=== PATIENT | female | born 1935 | race Caucasian/White ===

== ENCOUNTER 2016-03-15 20:25 | Emergency (ER) | payer OTHER ==
[2016-03-15 20:34] VITALS: TEMP 98.4; BMI 34.0
--- NOTE | 2016-03-15 21:02 | PDOC ---
History of Present Illness - History of Present Illness Initial Comments: 03/15/16 22:34 The patient is an 80 year old female with a past medical hx of asthma, CVA, hypertension, diabetes mellitus who presents to the ED complaining of headache and lightheadedness for a few days. She reports taking Tylenol with minimal relief. She states Tylenol usually relieves her of her normal headaches. She reports recently starting Famotidine and her ENT, Dr. Richard Nichole, reports these symptoms may be a side effect of this medication, but referred her to the ED for further evaluation. The patient denies any falls or trauma to her head. She notes she has photophobia, and has been feeling tired, weak, and off balance when walking with her cane. The patient denies chills, fever, dysuria, frequency The patient denies chest pain, SOB Social:No toxic habits reported Allergies:NKDA PCP: Dr. Deal Surgical:None reported <Hazel Ariza - Last Filed: 03/16/16 01:44> <Tayler Faith - Last Filed: 03/16/16 03:44> - General Chief Complaint: Lightheaded Stated Complaint: DIZZINESS,PCP SENT Time Seen by Provider: 03/15/16 20:47 Past History <Hazel Ariza - Last Filed: 03/16/16 01:44> - Past Medical History Asthma: Yes CVA: Yes (1997) Diabetes: Yes HTN: Yes Hypercholesterolemia: Yes Suicide Attempt (Hx): No - Psycho/Social/Smoking Cessation Hx Anxiety: No Suicidal Ideation: No Smoking History: Never smoked Number of Cigarettes Smoked Daily: 0 Hx Alcohol Use: No Drug/Substance Use Hx: No Substance Use Type: None Hx Substance Use Treatment: No <Tayler Faith - Last Filed: 03/16/16 03:44> - Past Medical History Allergies/Adverse Reactions: Allergies Allergy/AdvReac Type Severity Reaction Status Date / Time No Known Allergies Allergy Verified 03/15/16 20:30 Home Medications: Ambulatory Orders Salmeterol/Fluticasone [Advair 100Mcg/50Mcg -] 1 inh PO BID 06/21/14 Albuterol 2.5/Ipratropium 0.5 [Duoneb -] 1 neb NEB QIDR PRN #1 vial 06/26/14 Amoxicillin/Potassium Clav [Augmentin 875-125 Tablet] 1 each PO BID #2 tablet Insulin (Novolog) [Novolog Flexpen -] 0 units SQ ACHS #0 pen 06/26/14 Losartan/Hydrochlorothiazide [Losartan-Hctz 100-25 mg Tab] 1 each PO DAILY #0 06/26/14 Metformin HCl [Glucophage -] 500 mg PO BID #0 06/26/14 Metoprolol Succinate [Toprol XL -] 25 mg PO DAILY #0 06/26/14 Nifedipine ER [Procardia XL -] 30 mg PO BID #0 tab.er.24 06/26/14 Pantoprazole Sodium [Protonix -] 40 mg PO DAILY #0 tablet.ec 06/26/14 Potassium Chloride 10 meq PO DAILY #0 06/26/14 Prednisone [Deltasone -] 40 mg PO DAILY #30 tablet 06/26/14 Simvastatin [Zocor -] 40 mg PO HS #0 06/26/14 Levofloxacin [Levaquin -] 500 mg PO DAILY #10 tablet 03/16/16 Review of Systems - Review of Systems Able to Perform ROS?: Yes Comments:: 03/15/16 22:33 CONSTITUTIONAL: +weakness Absent: fever, chills, diaphoresis, generalized weakness, malaise, loss of appetite HEENT: Absent: rhinorrhea, nasal congestion, throat pain, throat swelling, difficulty swallowing, mouth swelling, ear pain, eye pain, visual Changes CARDIOVASCULAR: Absent: chest pain, syncope, palpitations, irregular heart rate, lightheadedness , peripheral edema RESPIRATORY: Absent: cough, shortness of breath, dyspnea with exertion, orthopnea, wheezing, stridor, hemoptysis GASTROINTESTINAL: +protuberant abdomen Absent: abdominal pain, nausea, vomiting, diarrhea, constipation, melena, hematochezia GENITOURINARY: Absent: dysuria, frequency, urgency, hesitancy, hematuria, flank pain, genital pain MUSCULOSKELETAL: Absent: myalgia, arthralgia, joint swelling SKIN: Absent: rash, itching, pallor HEMATOLOGIC/IMMUNOLOGIC: Absent: easy bleeding, easy bruising, lymphadenopathy, frequent infections ENDOCRINE: Absent: unexplained weight gain, unexplained weight loss, heat intolerance, cold intolerance NEUROLOGIC: +Headache, lightheadedness, unsteady gait. Absent: focal weakness or paresthesias, dizziness, seizure, mental status changes, bladder or bowel incontinence PSYCHIATRIC: Absent: anxiety, depression, suicidal or homicidal ideation, hallucinations. <KeiraHazel peralta - Last Filed: 03/16/16 01:44> *Physical Exam - Vital Signs Last Vital Signs Temp Pulse Resp BP Pulse Ox 98.4 F 70 18 117/64 99 03/15/16 20:32 03/15/16 20:32 03/15/16 20:32 03/15/16 20:32 03/15/16 20:32 - Physical Exam Comments: 03/15/16 22:35 GENERAL: Well developed, well nourished. Awake and alert. No acute distress. HEENT: Normocephalic, atraumatic. PERRLA, EOMI. No conjunctival pallor. Sclera are non- icteric. Moist mucous membranes. Oropharynx is clear. NECK: Supple. Full ROM. No JVD. Carotid pulses 2+ and symmetric, without bruits. No thyromegaly. No lymphadenopathy. CARDIOVASCULAR: Regular rate and rhythm. No murmurs, rubs, or gallops. Distal pulses are 2+ and symmetric. PULMONARY: No evidence of respiratory distress. Lungs clear to auscultation bilaterally. No wheezing, rales or rhonchi. ABDOMINAL: Soft. Non-tender. Non-distended. No rebound or guarding. No organomegaly. Normoactive bowel sounds. MUSCULOSKELETAL Normal range of motion at all joints. No bony deformities or tenderness. No CVA tenderness. EXTREMITIES: +Minimal pitting edema. No cyanosis. No clubbing. No calf tenderness. SKIN: Warm and dry. Normal capillary refill. No rashes. No jaundice. NEUROLOGICAL: Alert, awake, appropriate. Cranial nerves 2-12 intact. No deficits to light touch and temperature in face, upper extremities and lower extremities. No motor deficits in the in face, upper extremities and lower extremities. Normoreflexic in the upper and lower extremities. Normal speech. PSYCHIATRIC: Cooperative. Good eye contact. Appropriate mood and affect. <KeirafabianHazel - Last Filed: 03/16/16 01:44> - Vital Signs Last Vital Signs Temp Pulse Resp BP Pulse Ox 98.4 F 70 18 117/64 99 03/15/16 20:32 03/15/16 20:32 03/15/16 20:32 03/15/16 20:32 03/15/16 20:32 <Tayler Faith - Last Filed: 03/16/16 03:44> ED Treatment Course - LABORATORY CBC & Chemistry Diagram: 03/16/16 00:35 03/15/16 23:05 - RADIOLOGY Radiograph Interpretation: 03/15/16 23:35 Since prior chest x-ray dated 06/23/2014, the cardiac silhouette remains slightly enlarged with unfolding of the aortic arch. Perihilar increased lung markings again seen. Left apical opacity again seen unchanged since the prior examination compatible with pleural thickening and consolidation/airspace disease. Please correlate with prior CT scan of the chest findings dated 06/21. Impression: No significant interval change Reported By: Jessica Morgan MD 05/[address] Impression: No significant interval change or acute intracranial pathology is identified. Reported By: Jessica Morgan MD 03/15/16 [id number] <Hazel Ariza - Last Filed: 03/16/16 01:44> - LABORATORY CBC & Chemistry Diagram: 03/16/16 00:35 03/15/16 23:05 <Tayler Faith - Last Filed: 03/16/16 03:44> Medical Decision Making - Medical Decision Making 03/16/16 03:43 80-year-old female brought in by family because of some increased dizziness. She had been seen by ear, nose and throat recently started a new medication. CAT scan of the head was negative for any acute intracranial pathology EKG did not show any signs of ischemia. There was a negative cardiac enzyme She did not have any fever or chills. Significant leukocytosis. However, a urinalysis did show she had a urinary tract infection. She was started on Levaquin. She will be discharged antibiotics <Tayler Faith - Last Filed: 03/16/16 03:44> *DC/Admit/Observation/Transfer - Attestations Scribe Attestion: 03/15/16 22:36 Documentation prepared by Hazel Ariza, acting as medical claims representative for Tayler Faith MD/DO. <Hazel Ariza - Last Filed: 03/16/16 01:44> <Tayler Faith - Last Filed: 03/16/16 03:44> Diagnosis at time of Disposition: UTI (urinary tract infection) Qualifiers: Urinary tract infection type: site unspecified Hematuria presence: without hematuria Qualified Code(s): N39.0 - Urinary tract infection, site not specified - Discharge Dispostion Disposition: HOME Condition at time of disposition: Stable - Prescriptions Prescriptions: Levofloxacin [Levaquin -] 500 mg PO DAILY #10 tablet - Referrals Referrals: Al Deal MD [Primary Care Provider] - - Patient Instructions Printed Discharge Instructions: DI for Urinary Tract Infection (UTI) Additional Instructions: please 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
[2016-03-15 23:38] LABS: INR 0.97 (0.82-1.09); PROTHROMBIN TIME (PATIENT) 10.7 SEC (9.98-11.88)
[2016-03-15 23:56] LABS: ALBUMIN 3.8 g/dl (3.4-5.0); ANION GAP 12 (8-16); BILIRUBIN,TOTAL 0.2 mg/dL (0.2-1.0); CO2 29 mmol/L (21-32); CREATININE 1.6 mg/dL (0.55-1.02); GLUCOSE,RANDOM 126 mg/dL (74-106); SGPT/ALT 12 U/L (12-78); TOT PROT 6.7 g/dl (6.4-8.2)
[2016-03-15 23:58] LABS: ALK PHOS 59 U/L (45-117); TROPONIN I < 0.02 ng/ml (0.00-0.05)
[2016-03-16 00:24] LABS: SGOT/AST 17 U/L (15-37)
[2016-03-16 00:51] LABS: URINE APPEARANCE CLOUDY; URINE BILIRUBIN NEGATIVE (NEGATIVE); URINE COLOR DKYELLOW; URINE GLUCOSE (UA) NEGATIVE (NEGATIVE); URINE KETONE NEGATIVE (NEGATIVE); URINE NITRITE NEGATIVE (NEGATIVE); URINE UROBILINOGEN NEGATIVE E.U./dl (0.2-1.0)
[2016-03-16 00:54] LABS: URINE BLOOD 1+ (NEGATIVE); URINE LEUK ESTERASE 3+ (NEGATIVE); URINE PROTEIN 1+ (NEGATIVE)
[2016-03-16 00:59] LABS: URINE BACTERIA MANY /hpf (NONE SEEN); URINE HYALINE CAST 45 /lpf; URINE MUCUS RARE; URINE RBC 11 /hpf (0-3); URINE WBC 395 /hpf (3-5); YEAST RARE
[2016-03-16 01:08] LABS: BASOPHIL 0.7 % (0-2.0); EOSINOPHIL 1.7 % (0-4.5); MCH 27.7 pg (25.7-33.7); MCHC 32.1 g/dl (32.0-36.0); MEAN CELL VOLUME 86.2 fl (80-96); MEAN PLT VOLUME 11.8 fl (7.5-11.1); NEUTROPHILS 59.3 % (42.8-82.8); PLATELET COUNT 160 K/MM3 (134-434); RDW 14.6 % (11.6-15.6); WHITE BLOOD COUNT 10.1 K/mm3 (4.0-10.0)
[2016-03-16] MEDS ORDERED: LEVOFLOXACIN 500 MG IVPB 100 ML IVPB ONE ×2 (01:43→02:20)
[2016-03-16 03:15] VITALS: BP 139/77; PULSE 66
== END 2016-03-16 03:15 | disposition home or self-care (01) ==
LOC: JER 20:25
DX: N39.0 Urinary tract infection, site not specified (principal); J45.909 Unspecified asthma, uncomplicated; Z86.73 Personal history of transient ischemic attack (TIA), and cerebral infarction without residual deficits; I10 Essential (primary) hypertension; E11.9 Type 2 diabetes mellitus without complications; E78.00 Pure hypercholesterolemia, unspecified; Z79.4 Long term (current) use of insulin
CPT/HCPCS: 36415; 70450-TC; 71010-TC; 80053; 81003; 81015; 82550; 83880; 84484; 85025; 85610; 86850; 86900; 86901; 96365; 99281-25

== ENCOUNTER 2018-11-28 06:14 | Day surgery (SDC) | payer OTHER ==
[2018-11-23 10:09] VITALS: BMI 34.0
[2018-11-28] MEDS: TROPICAMIDE 1% OPHTH SOLN 15 ML BOTTLE ONE ×3 (06:55→07:05)
[2018-11-28] MEDS: PHENYLEPHRINE 2.5% OPHTH SOLN 15 ML BOTTLE ONE ×3 (06:55→07:05)
[2018-11-28] MEDS: CYCLOPENTOLATE 2% OPHTH SOLN 2 ML BOTTLE ONE ×3 (06:55→07:05)
[2018-11-28] MEDS: CIPROFLOXACIN 0.3% EYE DROPS 5 ML BOTTLE ONE ×3 (06:55→07:05)
[2018-11-28] MEDS ORDERED: BSS (NA/CA/MG/K) BALANCED SALT SOLUTION OPHTH SOLN 15 ML BOTTLE ONE (07:24)
[2018-11-28] MEDS ORDERED: LIDOCAINE 1% P/F 10 MG/ML VIAL ONE (07:24)
[2018-11-28] MEDS ORDERED: NEO/POLYMYX B SULF/DEXAMETH OPHTHALMIC 5ML BOTTLE ONE (07:24)
[2018-11-28] MEDS ORDERED: TETRACAINE 0.5% OPHTH SOLN 2 ML BOTTLE ONE (07:24)
[2018-11-28] MEDS ORDERED: CARBACHOL 0.01% INTRA-OCULAR 1.5 ML VIAL ONE (07:24)
[2018-11-28] MEDS ORDERED: EPINEPHrine/PF 1 MG/1 ML (1:1,000) AMPULE ONE (07:27)
[2018-11-28] MEDS ORDERED: MIDAZOLAM HCL 2 MG/2 ML SINGLE DOSE VIAL ONE (07:30)
[2018-11-28 09:37] VITALS: BP 151/65; PULSE 65; TEMP 98
--- NOTE | 2018-11-28 13:50 | CONS ---
DATE OF CONSULTATION: 11/28/2018 OPERATIVE PROCEDURE: Lens phacoemulsification with posterior chamber intraocular lens placement, right eye. PREOPERATIVE DIAGNOSIS: Visually significant cataract of right eye. POSTOPERATIVE DIAGNOSIS: Visually significant cataract of right eye. SURGEON: Liang Saucedo M.D. ANESTHESIA: MAC PROCEDURE: The patient was brought to the operating room and placed under monitored anesthesia care by Anesthesia. A drop of Tetracaine was then placed over the right eye. The patient was then prepped and draped in the usual sterile manner. A speculum was then placed over the right eye. The eye was then well irrigated with copious amounts of BSS (balanced salt solution). The operating microscope was then moved into position. A paracentesis was performed using a 15 degree blade. At this point 0.5 mL of 1% preservative free-lidocaine was injected into the anterior chamber. Amvisc plus was then injected into the anterior chamber. A clear corneal incision was then formed using a 2.2 mm keratome. A capsulorrhexis was then performed in a continuous circular fashion beginning with a cystotome completed with an Utratas forceps. Hydrodissection was then performed using BSS on a cannula. The phaco probe was then introduced through the corneal wound and the cataract was removed using the phaco chop technique. Approximately 3 seconds of absolute phaco time was used. The remaining cortex was then removed using irrigation and aspiration with an I/A probe. The capsule was then filled with regular Amvisc and the capsule was noted to be intact. A previously selected foldable posterior chamber intraocular lens was then injected into the capsule through the corneal wound using a lens injector. It was then dialed into position using a Sinskey hook. The Amvisc was then removed using irrigation and aspiration. Miostat was then injected through the paracentesis to constrict the pupil. The paracentesis and corneal wound were then hydrated and noted to be water tight. A drop of Maxitrol was then placed over the eye. The speculum was removed and clear shield was taped over the eye. The patient tolerated the procedure well and there were no surgical complications. The patient was asked to follow up in my office the next day. LIANG SAUCEDO M.D. JESSY/[id number]
== END 2018-11-28 09:40 | disposition home or self-care (01) ==
LOC: FASU 06:14
PROVIDERS: ATTEND Ophthalmology
PROC: 08RJ3JZ Replacement of Right Lens with Synthetic Substitute, Percutaneous Approach (ICD-10-PCS; principal; 2018-11-28 08:29)
DX: H26.8 Other specified cataract (principal)
CPT/HCPCS: 82962

== ENCOUNTER 2021-12-17 12:52 | Emergency (ER) | payer OTHER ==
[2021-12-17 13:09] VITALS: BP 139/48; PULSE 64; RESP 22; TEMP 98.8; BMI 31.7
[2021-12-17] MEDS ORDERED: DEXAMETHASONE SOD PHOSPHATE 10 MG/1 ML VIAL IVPUSH ONE (14:24)
[2021-12-17] MEDS ORDERED: ALBUTEROL SO4 2.5/IPRATROPIUM 0.5 INH SOL 3 ML VIAL.NEB. NEB ONE (14:29)
[2021-12-17] MEDS ORDERED: DEXAMETHASONE SOD PHOSPHATE 10 MG/1 ML VIAL ONE (14:29)
[2021-12-17] MEDS ORDERED: ALBUTEROL SO4 2.5/IPRATROPIUM 0.5 INH SOL 3 ML VIAL.NEB. NEB SCH (14:30)
[2021-12-17 15:20] LABS: BASO % 0.6 % (0-2.0); EOS % 0.1 % (0-4.5); HEMATOCRIT 35.8 % (32.4-45.2); HEMOGLOBIN 11.2 GM/dL (10.7-15.3); LYMPH % 14.8 % (8-40); MCH 27.2 pg (25.7-33.7); MCHC 31.4 g/dl (32.0-36.0); MEAN CELL VOLUME 86.7 fl (80-96); MEAN PLT VOLUME 11.9 fl (7.5-11.1); MONO % 13.2 % (3.8-10.2); NEUT % 71.3 % (42.8-82.8); PLATELET COUNT 111 10^3/uL (134-434); RBC 4.13 M/mm3 (3.60-5.2); RDW 15.6 % (11.6-15.6); WHITE BLOOD COUNT 9.6 K/mm3 (4.0-10.0)
[2021-12-17 15:48] LABS: CALCIUM 9.1 mg/dL (8.5-10.1)
[2021-12-17 15:49] LABS: BLOOD UREA NITROGEN 23.6 mg/dL (7-18)
[2021-12-17 15:52] LABS: CREATININE 1.4 mg/dL (0.55-1.3)
[2021-12-17 15:54] LABS: BILIRUBIN,TOTAL 0.3 mg/dL (0.2-1); TOT PROT 6.2 g/dl (6.4-8.2)
== END 2021-12-17 17:36 | disposition home or self-care (01) ==
LOC: JER 12:52
PROC: 3E0F7GC Introduction of Other Therapeutic Substance into Respiratory Tract, Via Natural or Artificial Opening (ICD-10-PCS; principal; 2021-12-17)
PROC: 3E0333Z Introduction of Anti-inflammatory into Peripheral Vein, Percutaneous Approach (ICD-10-PCS; 2021-12-17)
DX: U07.1 COVID-19 (principal)
CPT/HCPCS: 0241U-QW; 36415; 71045-TC-FY; 80053; 85025; 99284-25; J1100

== ENCOUNTER 2022-01-08 09:30 | Inpatient (IN) | payer OTHER ==
[2022-01-08] MEDS ORDERED: ALBUTEROL SO4 2.5/IPRATROPIUM 0.5 INH SOL 3 ML VIAL.NEB. NEB ONE (10:29)
[2022-01-08 12:39] LABS: CHLORIDE 103 mmol/L (98-107); SODIUM 140 mmol/L (136-145)
[2022-01-08 12:41] LABS: ALBUMIN 2.6 g/dl (3.4-5.0); ANION GAP 10 MMOL/L (8-16); BLOOD UREA NITROGEN 44.2 mg/dL (7-18); CALCIUM 8.7 mg/dL (8.5-10.1); CO2 27 mmol/L (21-32); GLUCOSE,RANDOM 175 mg/dL (74-106)
[2022-01-08 12:43] LABS: SGPT/ALT 11 U/L (13-61)
[2022-01-08 12:45] LABS: CREATININE 2.1 mg/dL (0.55-1.3); SGOT/AST 26 U/L (15-37)
[2022-01-08 12:46] LABS: BILIRUBIN,TOTAL 0.3 mg/dL (0.2-1); TOT PROT 6.6 g/dl (6.4-8.2)
[2022-01-08 12:47] LABS: ALK PHOS 80 U/L (45-117)
[2022-01-08 12:49] LABS: N-TERMINAL BNP 6398.6 pg/ml (5-450)
[2022-01-08 12:53] LABS: INR 2.11 (0.83-1.09); PROTHROMBIN TIME (PATIENT) 24.4 SEC (9.7-13.0)
[2022-01-08 12:56] LABS: ACTIVATED PTT 21.4 SECONDS (25.2-36.5)
[2022-01-08 12:57] LABS: VENOUS O2 SATURATION 69.1 % (70-80)
[2022-01-08 12:59] LABS: BASO % 0.1 % (0-2.0); HEMATOCRIT 31.1 % (32.4-45.2); HEMOGLOBIN 10.2 GM/dL (10.7-15.3); LYMPH % 5.9 % (8-40); MCH 28.5 pg (25.7-33.7); MCHC 32.8 g/dl (32.0-36.0); MEAN PLT VOLUME 11.1 fl (7.5-11.1); MONO % 11.8 % (3.8-10.2); NEUT % 82.2 % (42.8-82.8); PLATELET COUNT 165 10^3/uL (134-434); RBC 3.57 M/mm3 (3.60-5.2); RDW 16.2 % (11.6-15.6); WHITE BLOOD COUNT 11.8 K/mm3 (4.0-10.0)
[2022-01-08 13:07] LABS: VENOUS PCO2 72.4 mmHg (38-52); VENOUS PH 7.198 (7.310-7.410)
[2022-01-08 15:51] LABS: VENOUS BASE EXCESS -1.5 mmol/L (-2-2); VENOUS O2 SATURATION 50.1 % (70-80); VENOUS PCO2 59.4 mmHg (38-52); VENOUS PH 7.263 (7.310-7.410)
[2022-01-08 16:06] LABS: ALBUMIN 2.5 g/dl (3.4-5.0); CALCIUM 8.6 mg/dL (8.5-10.1)
[2022-01-08 16:09] LABS: CREATININE 2.1 mg/dL (0.55-1.3)
[2022-01-08 16:11] LABS: BILIRUBIN,TOTAL 0.2 mg/dL (0.2-1); TOT PROT 6.2 g/dl (6.4-8.2)
[2022-01-08] MEDS ORDERED: ACETAMINOPHEN 1000 MG/100 ML BAG IVPB ONE (16:21)
[2022-01-08] MEDS ORDERED: ACETAMINOPHEN INJECTION 100 ML IVPB ONE (16:22)
[2022-01-08] MEDS ORDERED: CEFTRIAXONE 1,000 MG in DEXTROSE 5%-WATER - 50 ML IVPB ONE (17:49)
[2022-01-08] MEDS ORDERED: AZITHROMYCIN IVPB 500 MG in DEXTROSE 5%-WATER - 250 ML IVPB ONE (17:49)
[2022-01-08] MEDS ORDERED: CEFTRIAXONE 1 GM/50 ML BAG ONE (18:12)
[2022-01-08] MEDS ORDERED: AZITHROMYCIN IVPB 500 MG/250 ML BAG IVPB ONE (18:13)
[2022-01-09] MEDS ORDERED: ACETAMINOPHEN 1000 MG/100 ML BAG IVPB ONE (05:11)
[2022-01-09 05:18] LABS: ARTERIAL BLD GAS O2 SATURATION 97.6 % (95-98); ARTERIAL BLOOD GAS BASE EXCESS -1.8 mmol/L (-2-2); ARTERIAL BLOOD GAS PO2 119.6 mmHg (80-100); ARTERIAL BLOOD GAS pH 7.243 (7.350-7.450)
[2022-01-09 05:21] LABS: ALLENS TEST POSITIVE
[2022-01-09] MEDS ORDERED: ACETAMINOPHEN INJECTION 100 ML IVPB ONE (05:43)
[2022-01-09] MEDS ORDERED: REMDESIVIR 200 MG in SODIUM CHLORIDE 250 ML IVPB ONE (08:22)
[2022-01-09] MEDS ORDERED: DEXAMETHASONE SOD PHOSPHATE 10 MG/1 ML VIAL ONE (08:46)
[2022-01-09] MEDS ORDERED: DONEPEZIL HCL 5 MG TABLET (FP) ONE (08:48)
[2022-01-09] MEDS ORDERED: ASCORBIC ACID 500 MG TABLET (FP) ONE ×2 (08:48→22:35)
[2022-01-09] MEDS ORDERED: APIXABAN 2.5 MG TABLET ONE ×2 (08:48→22:35)
[2022-01-09] MEDS ORDERED: DULoxetine HCL 30 MG CAPSULE.DR PO ONE (08:48)
[2022-01-09] MEDS ORDERED: CHOLECALCIFEROL (VIT D3) 1,000 UNIT (25 MCG) TABLET ONE (08:48)
[2022-01-09] MEDS ORDERED: LOSARTAN POTASSIUM 50 MG TABLET ONE (09:27)
[2022-01-09] MEDS ORDERED: HYDROCHLOROTHIAZIDE 25 MG TABLET (FP) ONE (09:27)
[2022-01-09 09:33] LABS: BASO % 0.1 % (0-2.0); EOS % 0.1 % (0-4.5); HEMOGLOBIN 10.1 GM/dL (10.7-15.3); INR 1.82 (0.83-1.09); LYMPH % 7.3 % (8-40); MCH 27.7 pg (25.7-33.7); MCHC 31.5 g/dl (32.0-36.0); MEAN CELL VOLUME 87.9 fl (80-96); MEAN PLT VOLUME 10.8 fl (7.5-11.1); MONO % 13.7 % (3.8-10.2); NEUT % 78.8 % (42.8-82.8); PLATELET COUNT 218 10^3/uL (134-434); PROTHROMBIN TIME (PATIENT) 21.1 SEC (9.7-13.0); RBC 3.64 M/mm3 (3.60-5.2); WHITE BLOOD COUNT 10.4 K/mm3 (4.0-10.0)
[2022-01-09] MEDS: HYDROCHLOROTHIAZIDE 25 MG TABLET (FP) PO SCH (09:33)
[2022-01-09] MEDS: DEXAMETHASONE SOD PHOSPHATE 10 MG/1 ML VIAL IVPUSH SCH ×2 (09:33→10:24)
[2022-01-09] MEDS: LOSARTAN POTASSIUM 50 MG TABLET PO SCH (09:34)
[2022-01-09] MEDS: DULoxetine HCL 30 MG CAPSULE.DR PO SCH (09:34)
[2022-01-09 09:35] LABS: CALCIUM 8.9 mg/dL (8.5-10.1)
[2022-01-09] MEDS: ASCORBIC ACID 500 MG TABLET (FP) PO SCH ×2 (09:35→22:51)
[2022-01-09] MEDS: CHOLECALCIFEROL (VIT D3) 1,000 UNIT (25 MCG) TABLET PO SCH (09:35)
[2022-01-09] MEDS: APIXABAN 2.5 MG TABLET PO SCH ×2 (09:35→22:51)
[2022-01-09] MEDS: PANTOPRAZOLE 40 MG TABLET PO SCH (09:35)
[2022-01-09 09:37] LABS: ALBUMIN 2.4 g/dl (3.4-5.0); BLOOD UREA NITROGEN 47.3 mg/dL (7-18); MAGNESIUM 2.3 mg/dL (1.8-2.4)
[2022-01-09 09:39] LABS: PHOSPHOROUS 4.8 mg/dL (2.5-4.9)
[2022-01-09 09:41] LABS: BILIRUBIN,TOTAL 0.2 mg/dL (0.2-1); TOT PROT 6.4 g/dl (6.4-8.2)
[2022-01-09] MEDS ORDERED: PATIENT'S OWN MEDICATION (NON-FORMULARY) (Losartan/Hydrochlorothiazide [Losartan-Hctz 100- PO SCH (10:00)
[2022-01-09] MEDS ORDERED: CHOLECALCIFEROL (VIT D3) 1,000 UNIT (25 MCG) TABLET PO SCH (10:00)
[2022-01-09] MEDS ORDERED: DONEPEZIL HCL 5 MG TABLET (FP) PO SCH (10:00)
[2022-01-09 11:38] LABS: ANISOCYTOSIS 0; HELMET CELLS 0; HOWELL-JOLLY BODIES 0; MACROCYTOSIS 0; OVALOCYTE 0; ROULEAU 0; SICKELED CELLS 0; TARGET CELLS 0; TEAR DROP CELLS 0; TOXIC GRANULATION 0
[2022-01-09] MEDS: BUDESONIDE/FORMETEROL FUMARATE 80/4.5 mcg INHALER IH SCH ×2 (11:48→22:21)
[2022-01-09] MEDS: CYANOCOBALAMIN 1,000 MCG TABLET (FP) PO SCH (11:49)
[2022-01-09] MEDS: INSULIN SLIDING SCALE (NOVOLOG) 1 VIAL SQ SCH ×3 (13:01→22:20)
[2022-01-09 13:10] LABS: EPI CELLS >36 /uL (0-25.1); HYALINE CASTS 10 /uL (0-3.1); PH,URINE 5.5 (5.0-8.0); URINE APPEARANCE CLOUDY; URINE BACTERIA >9,000 /uL (0-1359); URINE BILIRUBIN NEGATIVE (NEGATIVE); URINE COLOR YELLOW; URINE GLUCOSE (UA) NEGATIVE (NEGATIVE); URINE KETONE NEGATIVE (NEGATIVE); URINE LEUK ESTERASE TRACE (NEGATIVE); URINE NITRITE NEGATIVE (NEGATIVE); URINE PROTEIN 3+ (NEGATIVE); URINE RBC 6 /uL (0-23.9); URINE UROBILINOGEN 0.2 mg/dL (0.2-1.0); URINE WBC 28 /uL (0-25.8)
[2022-01-09] MEDS ORDERED: CEFTRIAXONE 2 GM/100 ML BAG IVPB ONE (13:58)
[2022-01-09] MEDS: CEFTRIAXONE 2 GM in DEXTROSE 5%-WATER 100 ML IVPB SCH (13:59)
[2022-01-09] MEDS ORDERED: AZITHROMYCIN IVPB 500 MG/250 ML BAG IVPB ONE (17:03)
[2022-01-09] MEDS: AZITHROMYCIN IVPB 250 MG in DEXTROSE 5%-WATER - 250 ML IVPB SCH (17:11)
[2022-01-09] MEDS ORDERED: ATORVASTATIN CA 20 MG TABLET (FP) ONE (22:35)
[2022-01-09] MEDS ORDERED: NIFEdipine E.R. 30 MG TABLET ONE (22:35)
[2022-01-09] MEDS: ATORVASTATIN CA 20 MG TABLET (FP) PO SCH (22:51)
[2022-01-09] MEDS: NIFEdipine E.R. 30 MG TABLET PO SCH (22:51)
[2022-01-10] MEDS: INSULIN SLIDING SCALE (NOVOLOG) 1 VIAL SQ SCH ×4 (08:52→21:02)
[2022-01-10] MEDS ORDERED: APIXABAN 2.5 MG TABLET ONE (10:57)
[2022-01-10] MEDS ORDERED: HYDROCHLOROTHIAZIDE 25 MG TABLET (FP) ONE (10:57)
[2022-01-10] MEDS ORDERED: CHOLECALCIFEROL (VIT D3) 1,000 UNIT (25 MCG) TABLET ONE (10:58)
[2022-01-10] MEDS ORDERED: DEXAMETHASONE SOD PHOSPHATE 10 MG/1 ML VIAL ONE (10:58)
[2022-01-10] MEDS ORDERED: ASCORBIC ACID 500 MG TABLET (FP) ONE (10:58)
[2022-01-10] MEDS ORDERED: LOSARTAN POTASSIUM 50 MG TABLET ONE (10:58)
[2022-01-10] MEDS ORDERED: DULoxetine HCL 30 MG CAPSULE.DR PO ONE (10:59)
[2022-01-10] MEDS ORDERED: CEFTRIAXONE 2 GM/100 ML BAG IVPB ONE (10:59)
[2022-01-10] MEDS: DULoxetine HCL 30 MG CAPSULE.DR PO SCH (11:00)
[2022-01-10] MEDS: DEXAMETHASONE SOD PHOSPHATE 10 MG/1 ML VIAL IVPUSH SCH (11:00)
[2022-01-10] MEDS: HYDROCHLOROTHIAZIDE 25 MG TABLET (FP) PO SCH (11:00)
[2022-01-10] MEDS: LOSARTAN POTASSIUM 50 MG TABLET PO SCH (11:00)
[2022-01-10] MEDS: PANTOPRAZOLE 40 MG TABLET PO SCH (11:00)
[2022-01-10] MEDS: CHOLECALCIFEROL (VIT D3) 1,000 UNIT (25 MCG) TABLET PO SCH (11:00)
[2022-01-10] MEDS: ASCORBIC ACID 500 MG TABLET (FP) PO SCH ×2 (11:00→21:02)
[2022-01-10] MEDS: CEFTRIAXONE 2 GM in DEXTROSE 5%-WATER 100 ML IVPB SCH (11:00)
[2022-01-10] MEDS: BUDESONIDE/FORMETEROL FUMARATE 80/4.5 mcg INHALER IH SCH ×2 (11:00→21:02)
[2022-01-10] MEDS: CYANOCOBALAMIN 1,000 MCG TABLET (FP) PO SCH (11:00)
[2022-01-10] MEDS: APIXABAN 2.5 MG TABLET PO SCH ×2 (11:00→21:01)
[2022-01-10] MEDS ORDERED: PANTOPRAZOLE 40 MG TABLET PO ONE (11:02)
[2022-01-10] MEDS: AZITHROMYCIN IVPB 250 MG in DEXTROSE 5%-WATER - 250 ML IVPB SCH (11:30)
[2022-01-10 16:25] VITALS: BMI 32.5
[2022-01-10 17:26] LABS: HEMATOCRIT 35.1 % (32.4-45.2); HEMOGLOBIN 11.2 GM/dL (10.7-15.3); MCHC 31.8 g/dl (32.0-36.0); MEAN PLT VOLUME 9.6 fl (7.5-11.1); PLATELET COUNT 262 10^3/uL (134-434); RBC 3.98 M/mm3 (3.60-5.2); RDW 16.1 % (11.6-15.6); WHITE BLOOD COUNT 10.9 K/mm3 (4.0-10.0)
[2022-01-10 17:46] LABS: BLOOD UREA NITROGEN 55.1 mg/dL (7-18); CALCIUM 9.2 mg/dL (8.5-10.1)
[2022-01-10 17:47] LABS: ALBUMIN 2.2 g/dl (3.4-5.0)
[2022-01-10 17:50] LABS: CREATININE 1.9 mg/dL (0.55-1.3)
[2022-01-10 17:51] LABS: BILIRUBIN,TOTAL 0.2 mg/dL (0.2-1); TOT PROT 6.5 g/dl (6.4-8.2)
[2022-01-10 18:38] LABS: ANISOCYTOSIS 1+; MACROCYTOSIS 0; PLATELET ESTIMATE NORMAL
[2022-01-10] MEDS: NIFEdipine E.R. 30 MG TABLET PO SCH ×2 (21:00→21:02)
[2022-01-10] MEDS: ATORVASTATIN CA 20 MG TABLET (FP) PO SCH (21:01)
[2022-01-10] MEDS: ACETAMINOPHEN 1000 MG/100 ML BAG IVPB PRN (21:45)
[2022-01-11] MEDS ORDERED: hydrALAZINE HCL 20 MG/ML VIAL IVPUSH ONE ×2 (04:52→22:05)
[2022-01-11 06:19] LABS: ARTERIAL BLD GAS O2 SATURATION 95.2 % (95-98); ARTERIAL BLOOD GAS BASE EXCESS 3.5 mmol/L (-2-2); ARTERIAL BLOOD GAS PO2 86.4 mmHg (80-100)
[2022-01-11] MEDS: INSULIN SLIDING SCALE (NOVOLOG) 1 VIAL SQ SCH ×4 (06:19→22:37)
[2022-01-11 06:22] LABS: ALLENS TEST POSITIVE
[2022-01-11 08:20] LABS: HEMATOCRIT 34.7 % (32.4-45.2); HEMOGLOBIN 10.8 GM/dL (10.7-15.3); MCH 27.2 pg (25.7-33.7); MCHC 31.1 g/dl (32.0-36.0); MEAN CELL VOLUME 87.4 fl (80-96); MEAN PLT VOLUME 9.8 fl (7.5-11.1); PLATELET COUNT 301 10^3/uL (134-434); RBC 3.97 M/mm3 (3.60-5.2); RDW 15.8 % (11.6-15.6)
[2022-01-11] MEDS ORDERED: INSULIN (LEVEMIR) 100 UNITS/ML UNITS SQ ONE (08:24)
[2022-01-11 08:39] LABS: MAGNESIUM 2.8 mg/dL (1.8-2.4)
[2022-01-11 08:40] LABS: ALBUMIN 2.3 g/dl (3.4-5.0); CALCIUM 9.5 mg/dL (8.5-10.1)
[2022-01-11 08:43] LABS: CREATININE 1.8 mg/dL (0.55-1.3); PHOSPHOROUS 4.2 mg/dL (2.5-4.9)
[2022-01-11 08:45] LABS: BILIRUBIN,TOTAL 0.2 mg/dL (0.2-1); TOT PROT 6.3 g/dl (6.4-8.2)
[2022-01-11 10:20] LABS: ANISOCYTOSIS 0; HELMET CELLS 0; HOWELL-JOLLY BODIES 0; MACROCYTOSIS 0; OVALOCYTE 0; ROULEAU 0; SICKELED CELLS 0; TARGET CELLS 0; TEAR DROP CELLS 0; TOXIC GRANULATION 0
[2022-01-11] MEDS: APIXABAN 2.5 MG TABLET PO SCH ×2 (10:49→21:14)
[2022-01-11] MEDS: CYANOCOBALAMIN 1,000 MCG TABLET (FP) PO SCH (10:49)
[2022-01-11] MEDS: CHOLECALCIFEROL (VIT D3) 1,000 UNIT (25 MCG) TABLET PO SCH (10:50)
[2022-01-11] MEDS: AZITHROMYCIN IVPB 250 MG in DEXTROSE 5%-WATER - 250 ML IVPB SCH (10:50)
[2022-01-11] MEDS: LOSARTAN POTASSIUM 50 MG TABLET PO SCH (10:50)
[2022-01-11] MEDS: PANTOPRAZOLE 40 MG TABLET PO SCH (10:50)
[2022-01-11] MEDS: DULoxetine HCL 30 MG CAPSULE.DR PO SCH (10:50)
[2022-01-11] MEDS: DEXAMETHASONE SOD PHOSPHATE 10 MG/1 ML VIAL IVPUSH SCH (10:50)
[2022-01-11] MEDS: ASCORBIC ACID 500 MG TABLET (FP) PO SCH ×2 (10:50→21:14)
[2022-01-11] MEDS: CEFTRIAXONE 2 GM in DEXTROSE 5%-WATER 100 ML IVPB SCH (10:50)
[2022-01-11] MEDS: BUDESONIDE/FORMETEROL FUMARATE 80/4.5 mcg INHALER IH SCH ×2 (10:51→22:37)
[2022-01-11] MEDS: ACETAMINOPHEN 1000 MG/100 ML BAG IVPB PRN (15:05)
[2022-01-11] MEDS: NIFEdipine E.R. 30 MG TABLET PO SCH (21:14)
[2022-01-11] MEDS: ATORVASTATIN CA 20 MG TABLET (FP) PO SCH (21:14)
[2022-01-12] MEDS ORDERED: hydrALAZINE HCL 20 MG/ML VIAL IVPUSH PRN (06:08)
[2022-01-12] MEDS: INSULIN SLIDING SCALE (NOVOLOG) 1 VIAL SQ SCH ×4 (06:17→23:46)
[2022-01-12] MEDS ORDERED: hydrALAZINE HCL 20 MG/ML VIAL IVPUSH ONE (06:18)
[2022-01-12 06:58] LABS: HEMATOCRIT 35.7 % (32.4-45.2); HEMOGLOBIN 11.3 GM/dL (10.7-15.3); MCH 27.3 pg (25.7-33.7); MCHC 31.6 g/dl (32.0-36.0); MEAN CELL VOLUME 86.2 fl (80-96); MEAN PLT VOLUME 9.3 fl (7.5-11.1); PLATELET COUNT 306 10^3/uL (134-434); RBC 4.14 M/mm3 (3.60-5.2); RDW 15.8 % (11.6-15.6); WHITE BLOOD COUNT 16.6 K/mm3 (4.0-10.0)
[2022-01-12 07:20] LABS: ALBUMIN 2.4 g/dl (3.4-5.0); BLOOD UREA NITROGEN 57.4 mg/dL (7-18); CALCIUM 9.5 mg/dL (8.5-10.1); MAGNESIUM 2.7 mg/dL (1.8-2.4)
[2022-01-12 07:23] LABS: CREATININE 1.3 mg/dL (0.55-1.3); PHOSPHOROUS 2.7 mg/dL (2.5-4.9)
[2022-01-12 07:24] LABS: BILIRUBIN,TOTAL 0.3 mg/dL (0.2-1); TOT PROT 6.4 g/dl (6.4-8.2)
[2022-01-12 09:27] LABS: ANISOCYTOSIS 2+; MACROCYTOSIS 0
[2022-01-12] MEDS: CYANOCOBALAMIN 1,000 MCG TABLET (FP) PO SCH (09:46)
[2022-01-12] MEDS: CHOLECALCIFEROL (VIT D3) 1,000 UNIT (25 MCG) TABLET PO SCH (09:46)
[2022-01-12] MEDS: ASCORBIC ACID 500 MG TABLET (FP) PO SCH ×2 (09:46→21:19)
[2022-01-12] MEDS: CEFTRIAXONE 2 GM in DEXTROSE 5%-WATER 100 ML IVPB SCH (09:47)
[2022-01-12] MEDS: AZITHROMYCIN IVPB 250 MG in DEXTROSE 5%-WATER - 250 ML IVPB SCH (09:47)
[2022-01-12] MEDS: PANTOPRAZOLE 40 MG TABLET PO SCH (09:47)
[2022-01-12] MEDS: DULoxetine HCL 30 MG CAPSULE.DR PO SCH (09:47)
[2022-01-12] MEDS: DEXAMETHASONE SOD PHOSPHATE 10 MG/1 ML VIAL IVPUSH SCH (09:47)
[2022-01-12] MEDS: LOSARTAN POTASSIUM 50 MG TABLET PO SCH (09:47)
[2022-01-12] MEDS: APIXABAN 2.5 MG TABLET PO SCH ×2 (09:47→21:19)
[2022-01-12] MEDS ORDERED: hydrALAZINE HCL 25 MG TABLET (FP) PO SCH (10:00)
[2022-01-12] MEDS: BUDESONIDE/FORMETEROL FUMARATE 80/4.5 mcg INHALER IH SCH ×2 (10:01→21:27)
[2022-01-12] MEDS: POTASSIUM CHLORIDE 20 MEQ in DEXTROSE 5%-WATER - 1,000 ML IV SCH (14:24)
[2022-01-12] MEDS ORDERED: hydrALAZINE HCL 25 MG TABLET (FP) PO ONE (16:47)
[2022-01-12] MEDS: NIFEdipine E.R. 30 MG TABLET PO SCH (20:10)
[2022-01-12] MEDS ORDERED: LABETALOL HCL 5 MG/1 ML (100MG/20 ML VIAL) IVPUSH PRN (20:36)
[2022-01-12] MEDS: ATORVASTATIN CA 20 MG TABLET (FP) PO SCH (21:19)
[2022-01-12] MEDS: hydrALAZINE HCL 25 MG TABLET (FP) PO SCH (21:19)
[2022-01-12] MEDS ORDERED: METOPROLOL TARTRATE 5 MG/5 ML VIAL IVPUSH ONE (22:58)
[2022-01-12] MEDS ORDERED: QUEtiapine FUMARATE 25 MG TABLET PO ONE (22:59)
[2022-01-13] MEDS: MELATONIN 5 MG TABLETS PO SCH ×4 (00:11→21:41)
[2022-01-13] MEDS: hydrALAZINE HCL 25 MG TABLET (FP) PO SCH ×3 (07:03→21:42)
[2022-01-13] MEDS: INSULIN SLIDING SCALE (NOVOLOG) 1 VIAL SQ SCH ×4 (07:03→21:34)
[2022-01-13 08:01] LABS: HEMATOCRIT 36.4 % (32.4-45.2); HEMOGLOBIN 11.6 GM/dL (10.7-15.3); MCH 27.4 pg (25.7-33.7); MCHC 31.8 g/dl (32.0-36.0); MEAN CELL VOLUME 86.1 fl (80-96); MEAN PLT VOLUME 9.3 fl (7.5-11.1); PLATELET COUNT 304 10^3/uL (134-434); RBC 4.23 M/mm3 (3.60-5.2); RDW 16.1 % (11.6-15.6); WHITE BLOOD COUNT 16.2 K/mm3 (4.0-10.0)
[2022-01-13 08:30] LABS: ALBUMIN 2.5 g/dl (3.4-5.0); CALCIUM 9.3 mg/dL (8.5-10.1)
[2022-01-13 08:31] LABS: BLOOD UREA NITROGEN 66.6 mg/dL (7-18); MAGNESIUM 2.7 mg/dL (1.8-2.4)
[2022-01-13 08:34] LABS: CREATININE 1.5 mg/dL (0.55-1.3); PHOSPHOROUS 2.7 mg/dL (2.5-4.9)
[2022-01-13 08:35] LABS: BILIRUBIN,TOTAL 0.3 mg/dL (0.2-1)
[2022-01-13 08:36] LABS: TOT PROT 6.3 g/dl (6.4-8.2)
[2022-01-13] MEDS: POTASSIUM CHLORIDE 20 MEQ in DEXTROSE 5%-WATER - 1,000 ML IV SCH (08:50)
[2022-01-13] MEDS: CEFTRIAXONE 2 GM in DEXTROSE 5%-WATER 100 ML IVPB SCH (09:07)
[2022-01-13] MEDS: CHOLECALCIFEROL (VIT D3) 1,000 UNIT (25 MCG) TABLET PO SCH (09:08)
[2022-01-13] MEDS: DULoxetine HCL 30 MG CAPSULE.DR PO SCH (09:08)
[2022-01-13] MEDS: ASCORBIC ACID 500 MG TABLET (FP) PO SCH ×2 (09:08→21:42)
[2022-01-13] MEDS: APIXABAN 2.5 MG TABLET PO SCH ×2 (09:08→21:41)
[2022-01-13] MEDS: PANTOPRAZOLE 40 MG TABLET PO SCH (09:08)
[2022-01-13] MEDS: LOSARTAN POTASSIUM 50 MG TABLET PO SCH (09:08)
[2022-01-13] MEDS: DEXAMETHASONE SOD PHOSPHATE 10 MG/1 ML VIAL IVPUSH SCH (09:09)
[2022-01-13] MEDS: CYANOCOBALAMIN 1,000 MCG TABLET (FP) PO SCH (09:09)
[2022-01-13] MEDS: BUDESONIDE/FORMETEROL FUMARATE 80/4.5 mcg INHALER IH SCH ×2 (09:10→21:42)
[2022-01-13 09:11] LABS: ANISOCYTOSIS 0; MACROCYTOSIS 0
[2022-01-13] MEDS: KCL 10 MEQ IVPB 10 MEQ/100 ML INFUS.BAG IVPB SCH ×2 (13:03→15:01)
[2022-01-13] MEDS: POTASSIUM CHLORIDE 40 MEQ in DEXTROSE 5%-WATER - 1,000 ML IV SCH (14:25)
[2022-01-13] MEDS: NIFEdipine E.R. 30 MG TABLET PO SCH (21:36)
[2022-01-13] MEDS: ATORVASTATIN CA 20 MG TABLET (FP) PO SCH (21:41)
[2022-01-14] MEDS ORDERED: ACETAMINOPHEN 1000 MG/100 ML BAG IVPB ONE (05:07)
[2022-01-14] MEDS: POTASSIUM CHLORIDE 40 MEQ in DEXTROSE 5%-WATER - 1,000 ML IV SCH ×2 (05:15→09:46)
[2022-01-14] MEDS: hydrALAZINE HCL 25 MG TABLET (FP) PO SCH ×3 (06:56→22:49)
[2022-01-14] MEDS: INSULIN (LEVEMIR) 100 UNITS/ML UNITS SQ SCH (06:56)
[2022-01-14] MEDS: INSULIN SLIDING SCALE (NOVOLOG) 1 VIAL SQ SCH ×4 (06:57→22:57)
[2022-01-14 08:34] LABS: HEMATOCRIT 36.2 % (32.4-45.2); HEMOGLOBIN 11.3 GM/dL (10.7-15.3); MCH 27.1 pg (25.7-33.7); MCHC 31.1 g/dl (32.0-36.0); MEAN CELL VOLUME 87.1 fl (80-96); MEAN PLT VOLUME 9.5 fl (7.5-11.1); PLATELET COUNT 301 10^3/uL (134-434); RBC 4.15 M/mm3 (3.60-5.2); RDW 16.5 % (11.6-15.6)
[2022-01-14 08:49] LABS: BLOOD UREA NITROGEN 65.6 mg/dL (7-18)
[2022-01-14 08:50] LABS: ALBUMIN 2.3 g/dl (3.4-5.0); MAGNESIUM 2.6 mg/dL (1.8-2.4)
[2022-01-14 08:53] LABS: CREATININE 1.4 mg/dL (0.55-1.3)
[2022-01-14 08:54] LABS: BILIRUBIN,TOTAL 0.2 mg/dL (0.2-1); PHOSPHOROUS 3.4 mg/dL (2.5-4.9)
[2022-01-14 09:40] LABS: ANISOCYTOSIS 2+; MACROCYTOSIS 0; OVALOCYTE 1+
[2022-01-14] MEDS: LOSARTAN POTASSIUM 50 MG TABLET PO SCH (09:47)
[2022-01-14] MEDS: DULoxetine HCL 30 MG CAPSULE.DR PO SCH (09:47)
[2022-01-14] MEDS: PANTOPRAZOLE 40 MG TABLET PO SCH (09:48)
[2022-01-14] MEDS: APIXABAN 2.5 MG TABLET PO SCH ×2 (09:48→22:56)
[2022-01-14] MEDS: CYANOCOBALAMIN 1,000 MCG TABLET (FP) PO SCH (09:48)
[2022-01-14] MEDS: ASCORBIC ACID 500 MG TABLET (FP) PO SCH ×2 (09:48→22:56)
[2022-01-14] MEDS: CHOLECALCIFEROL (VIT D3) 1,000 UNIT (25 MCG) TABLET PO SCH (09:48)
[2022-01-14] MEDS: DEXAMETHASONE SOD PHOSPHATE 10 MG/1 ML VIAL IVPUSH SCH (09:48)
[2022-01-14] MEDS: CEFTRIAXONE 2 GM in DEXTROSE 5%-WATER 100 ML IVPB SCH (09:52)
[2022-01-14] MEDS: BUDESONIDE/FORMETEROL FUMARATE 80/4.5 mcg INHALER IH SCH ×2 (10:25→22:57)
[2022-01-14] MEDS: POTASSIUM CHLORIDE 10 MEQ in DEXTROSE 5%-WATER - 1,000 ML IV SCH (15:02)
[2022-01-14] MEDS: NIFEdipine E.R. 30 MG TABLET PO SCH (22:51)
[2022-01-14] MEDS: ATORVASTATIN CA 20 MG TABLET (FP) PO SCH (22:56)
[2022-01-14] MEDS: MELATONIN 5 MG TABLETS PO SCH (22:56)
[2022-01-15] MEDS: hydrALAZINE HCL 25 MG TABLET (FP) PO SCH ×3 (06:23→21:41)
[2022-01-15] MEDS: INSULIN SLIDING SCALE (NOVOLOG) 1 VIAL SQ SCH ×4 (07:02→22:37)
[2022-01-15] MEDS: INSULIN (LEVEMIR) 100 UNITS/ML UNITS SQ SCH (07:03)
[2022-01-15 09:19] LABS: HEMATOCRIT 37.2 % (32.4-45.2); HEMOGLOBIN 11.5 GM/dL (10.7-15.3); MCHC 30.9 g/dl (32.0-36.0); MEAN CELL VOLUME 87.2 fl (80-96); MEAN PLT VOLUME 9.9 fl (7.5-11.1); PLATELET COUNT 263 10^3/uL (134-434); RBC 4.27 M/mm3 (3.60-5.2); RDW 16.1 % (11.6-15.6); WHITE BLOOD COUNT 16.3 K/mm3 (4.0-10.0)
[2022-01-15] MEDS: APIXABAN 2.5 MG TABLET PO SCH ×2 (09:45→22:25)
[2022-01-15] MEDS: CHOLECALCIFEROL (VIT D3) 1,000 UNIT (25 MCG) TABLET PO SCH (09:45)
[2022-01-15] MEDS: DULoxetine HCL 30 MG CAPSULE.DR PO SCH (09:45)
[2022-01-15] MEDS: DEXAMETHASONE SOD PHOSPHATE 10 MG/1 ML VIAL IVPUSH SCH (09:46)
[2022-01-15] MEDS: PANTOPRAZOLE 40 MG TABLET PO SCH (09:46)
[2022-01-15] MEDS: ASCORBIC ACID 500 MG TABLET (FP) PO SCH ×2 (09:46→22:25)
[2022-01-15] MEDS: POTASSIUM CHLORIDE 10 MEQ in DEXTROSE 5%-WATER - 1,000 ML IV SCH (09:46)
[2022-01-15] MEDS: BUDESONIDE/FORMETEROL FUMARATE 80/4.5 mcg INHALER IH SCH ×2 (09:46→21:41)
[2022-01-15] MEDS: CYANOCOBALAMIN 1,000 MCG TABLET (FP) PO SCH (09:46)
[2022-01-15] MEDS: LOSARTAN POTASSIUM 50 MG TABLET PO SCH (09:46)
[2022-01-15 09:55] LABS: CALCIUM 8.7 mg/dL (8.5-10.1)
[2022-01-15 09:56] LABS: ALBUMIN 2.2 g/dl (3.4-5.0); BLOOD UREA NITROGEN 64.8 mg/dL (7-18); MAGNESIUM 2.4 mg/dL (1.8-2.4)
[2022-01-15 09:58] LABS: PHOSPHOROUS 4.3 mg/dL (2.5-4.9)
[2022-01-15 09:59] LABS: CREATININE 1.4 mg/dL (0.55-1.3)
[2022-01-15 10:01] LABS: BILIRUBIN,TOTAL 0.2 mg/dL (0.2-1); TOT PROT 5.8 g/dl (6.4-8.2)
[2022-01-15 10:02] LABS: ANISOCYTOSIS 2+; MACROCYTOSIS 0
[2022-01-15] MEDS: NIFEdipine E.R. 30 MG TABLET PO SCH (21:41)
[2022-01-15] MEDS: ATORVASTATIN CA 20 MG TABLET (FP) PO SCH (22:25)
[2022-01-15] MEDS: MELATONIN 5 MG TABLETS PO SCH (22:25)
[2022-01-16] MEDS: hydrALAZINE HCL 25 MG TABLET (FP) PO SCH ×3 (05:27→21:31)
[2022-01-16] MEDS: POTASSIUM CHLORIDE 10 MEQ in DEXTROSE 5%-WATER - 1,000 ML IV SCH (05:28)
[2022-01-16] MEDS: INSULIN (LEVEMIR) 100 UNITS/ML UNITS SQ SCH (07:18)
[2022-01-16] MEDS: INSULIN SLIDING SCALE (NOVOLOG) 1 VIAL SQ SCH ×4 (07:19→21:38)
[2022-01-16 08:14] LABS: HEMATOCRIT 36.3 % (32.4-45.2); HEMOGLOBIN 11.3 GM/dL (10.7-15.3); MCH 27.2 pg (25.7-33.7); MCHC 31.3 g/dl (32.0-36.0); MEAN PLT VOLUME 9.9 fl (7.5-11.1); PLATELET COUNT 205 10^3/uL (134-434); RBC 4.17 M/mm3 (3.60-5.2); RDW 15.8 % (11.6-15.6); WHITE BLOOD COUNT 14.8 K/mm3 (4.0-10.0)
[2022-01-16 08:25] LABS: ALBUMIN 2.3 g/dl (3.4-5.0); BLOOD UREA NITROGEN 74.5 mg/dL (7-18)
[2022-01-16 08:28] LABS: CREATININE 1.6 mg/dL (0.55-1.3)
[2022-01-16 08:30] LABS: BILIRUBIN,TOTAL 0.3 mg/dL (0.2-1); TOT PROT 5.6 g/dl (6.4-8.2)
[2022-01-16 08:55] LABS: ANISOCYTOSIS 1+; MACROCYTOSIS 0
[2022-01-16] MEDS: ASCORBIC ACID 500 MG TABLET (FP) PO SCH ×2 (10:44→21:31)
[2022-01-16] MEDS: PANTOPRAZOLE 40 MG TABLET PO SCH (10:44)
[2022-01-16] MEDS: LOSARTAN POTASSIUM 50 MG TABLET PO SCH (10:44)
[2022-01-16] MEDS: DEXAMETHASONE SOD PHOSPHATE 10 MG/1 ML VIAL IVPUSH SCH (10:44)
[2022-01-16] MEDS: APIXABAN 2.5 MG TABLET PO SCH ×2 (10:44→21:31)
[2022-01-16] MEDS: CHOLECALCIFEROL (VIT D3) 1,000 UNIT (25 MCG) TABLET PO SCH (10:44)
[2022-01-16] MEDS: DULoxetine HCL 30 MG CAPSULE.DR PO SCH (10:44)
[2022-01-16] MEDS: CYANOCOBALAMIN 1,000 MCG TABLET (FP) PO SCH (10:44)
[2022-01-16] MEDS: BUDESONIDE/FORMETEROL FUMARATE 80/4.5 mcg INHALER IH SCH ×2 (10:45→21:31)
[2022-01-16] MEDS ORDERED: DEXTROSE 5%-0.45% SALINE 1,000 ML IV SCH (11:30)
[2022-01-16] MEDS: DEXTROSE 5%-WATER - 1,000 ML IV SCH (14:11)
[2022-01-16] MEDS: MELATONIN 5 MG TABLETS PO SCH (21:31)
[2022-01-16] MEDS: NIFEdipine E.R. 30 MG TABLET PO SCH (21:31)
[2022-01-16] MEDS: ATORVASTATIN CA 20 MG TABLET (FP) PO SCH (21:31)
[2022-01-17] MEDS: INSULIN SLIDING SCALE (NOVOLOG) 1 VIAL SQ SCH ×4 (06:23→21:36)
[2022-01-17] MEDS: hydrALAZINE HCL 25 MG TABLET (FP) PO SCH ×3 (06:23→21:31)
[2022-01-17] MEDS: INSULIN (LEVEMIR) 100 UNITS/ML UNITS SQ SCH (06:23)
[2022-01-17 08:56] LABS: BASO % 0.2 % (0-2.0); EOS % 0.3 % (0-4.5); HEMATOCRIT 36.5 % (32.4-45.2); HEMOGLOBIN 11.4 GM/dL (10.7-15.3); LYMPH % 11.2 % (8-40); MCH 27.2 pg (25.7-33.7); MCHC 31.3 g/dl (32.0-36.0); MEAN CELL VOLUME 86.9 fl (80-96); MEAN PLT VOLUME 10.2 fl (7.5-11.1); MONO % 10.6 % (3.8-10.2); NEUT % 77.7 % (42.8-82.8); PLATELET COUNT 156 10^3/uL (134-434); RDW 16.1 % (11.6-15.6)
[2022-01-17 09:28] LABS: BLOOD UREA NITROGEN 72.4 mg/dL (7-18)
[2022-01-17 09:29] LABS: CALCIUM 8.6 mg/dL (8.5-10.1); MAGNESIUM 2.4 mg/dL (1.8-2.4)
[2022-01-17 09:32] LABS: CREATININE 1.4 mg/dL (0.55-1.3); PHOSPHOROUS 3.8 mg/dL (2.5-4.9)
[2022-01-17] MEDS: CYANOCOBALAMIN 1,000 MCG TABLET (FP) PO SCH (10:19)
[2022-01-17] MEDS: DEXAMETHASONE SOD PHOSPHATE 10 MG/1 ML VIAL IVPUSH SCH (10:20)
[2022-01-17] MEDS: DULoxetine HCL 30 MG CAPSULE.DR PO SCH (10:20)
[2022-01-17] MEDS: ASCORBIC ACID 500 MG TABLET (FP) PO SCH ×2 (10:20→21:31)
[2022-01-17] MEDS: BUDESONIDE/FORMETEROL FUMARATE 80/4.5 mcg INHALER IH SCH ×2 (10:20→21:31)
[2022-01-17] MEDS: APIXABAN 2.5 MG TABLET PO SCH ×2 (10:20→21:30)
[2022-01-17] MEDS: PANTOPRAZOLE 40 MG TABLET PO SCH (10:20)
[2022-01-17] MEDS: CHOLECALCIFEROL (VIT D3) 1,000 UNIT (25 MCG) TABLET PO SCH (10:20)
[2022-01-17] MEDS: LOSARTAN POTASSIUM 50 MG TABLET PO SCH ×2 (10:20→11:56)
[2022-01-17] MEDS ORDERED: INSULIN SLIDING SCALE (NOVOLOG) 1 VIAL SQ ONE (11:55)
[2022-01-17] MEDS: DEXTROSE 5%-WATER - 1,000 ML IV SCH ×2 (12:05→17:24)
[2022-01-17] MEDS: MELATONIN 5 MG TABLETS PO SCH (21:31)
[2022-01-17] MEDS: ATORVASTATIN CA 20 MG TABLET (FP) PO SCH (21:31)
[2022-01-17] MEDS: NIFEdipine E.R. 30 MG TABLET PO SCH (21:31)
[2022-01-18] MEDS: hydrALAZINE HCL 25 MG TABLET (FP) PO SCH ×3 (06:06→20:59)
[2022-01-18] MEDS: INSULIN (LEVEMIR) 100 UNITS/ML UNITS SQ SCH (06:06)
[2022-01-18] MEDS: INSULIN SLIDING SCALE (NOVOLOG) 1 VIAL SQ SCH ×3 (06:08→16:42)
[2022-01-18 08:11] LABS: BASO % 0.2 % (0-2.0); EOS % 0.2 % (0-4.5); HEMATOCRIT 34.3 % (32.4-45.2); HEMOGLOBIN 10.8 GM/dL (10.7-15.3); LYMPH % 12.4 % (8-40); MCH 27.1 pg (25.7-33.7); MCHC 31.6 g/dl (32.0-36.0); MEAN CELL VOLUME 85.8 fl (80-96); MONO % 9.3 % (3.8-10.2); NEUT % 77.9 % (42.8-82.8); PLATELET COUNT 130 10^3/uL (134-434); RBC 3.99 M/mm3 (3.60-5.2); RDW 15.4 % (11.6-15.6); WHITE BLOOD COUNT 12.5 K/mm3 (4.0-10.0)
[2022-01-18 08:43] LABS: ALBUMIN 2.1 g/dl (3.4-5.0); CALCIUM 8.2 mg/dL (8.5-10.1); MAGNESIUM 2.1 mg/dL (1.8-2.4)
[2022-01-18 08:46] LABS: CREATININE 1.4 mg/dL (0.55-1.3); PHOSPHOROUS 3.2 mg/dL (2.5-4.9)
[2022-01-18 08:48] LABS: BILIRUBIN,TOTAL 0.3 mg/dL (0.2-1)
[2022-01-18] MEDS: LOSARTAN POTASSIUM 50 MG TABLET PO SCH (09:51)
[2022-01-18] MEDS: APIXABAN 2.5 MG TABLET PO SCH ×2 (10:49→20:59)
[2022-01-18] MEDS: DEXAMETHASONE SOD PHOSPHATE 10 MG/1 ML VIAL IVPUSH SCH (10:49)
[2022-01-18] MEDS: BUDESONIDE/FORMETEROL FUMARATE 80/4.5 mcg INHALER IH SCH ×2 (10:49→21:01)
[2022-01-18] MEDS: DULoxetine HCL 30 MG CAPSULE.DR PO SCH (10:49)
[2022-01-18] MEDS: ASCORBIC ACID 500 MG TABLET (FP) PO SCH ×2 (10:49→20:59)
[2022-01-18] MEDS: CHOLECALCIFEROL (VIT D3) 1,000 UNIT (25 MCG) TABLET PO SCH (10:49)
[2022-01-18] MEDS: CYANOCOBALAMIN 1,000 MCG TABLET (FP) PO SCH (10:49)
[2022-01-18] MEDS: PANTOPRAZOLE 40 MG TABLET PO SCH (10:49)
[2022-01-18] MEDS ORDERED: DOCUSATE SODIUM 100 MG CAPSULE (FP) PO ONE (15:25)
[2022-01-18] MEDS: SODIUM CHLORIDE 0.45% 1,000 ML IV SCH (20:10)
[2022-01-18] MEDS: NIFEdipine E.R 60 MG TABLET PO SCH (20:59)
[2022-01-18] MEDS: ATORVASTATIN CA 20 MG TABLET (FP) PO SCH (20:59)
[2022-01-18] MEDS: MELATONIN 5 MG TABLETS PO SCH (20:59)
[2022-01-18] MEDS: SENNOSIDES 8.8 MG/5 ML BULK BOTTLE PO SCH (21:00)
[2022-01-19] MEDS: INSULIN SLIDING SCALE (NOVOLOG) 1 VIAL SQ SCH ×3 (06:09→16:44)
[2022-01-19] MEDS: hydrALAZINE HCL 25 MG TABLET (FP) PO SCH (06:09)
[2022-01-19] MEDS: INSULIN (LEVEMIR) 100 UNITS/ML UNITS SQ SCH (06:09)
[2022-01-19 08:29] LABS: BASO % 0.1 % (0-2.0); EOS % 0.2 % (0-4.5); HEMATOCRIT 32.2 % (32.4-45.2); HEMOGLOBIN 10.5 GM/dL (10.7-15.3); LYMPH % 11.3 % (8-40); MCH 28.1 pg (25.7-33.7); MCHC 32.6 g/dl (32.0-36.0); MEAN CELL VOLUME 86.1 fl (80-96); MEAN PLT VOLUME 11.1 fl (7.5-11.1); MONO % 10.2 % (3.8-10.2); NEUT % 78.2 % (42.8-82.8); PLATELET COUNT 112 10^3/uL (134-434); RBC 3.74 M/mm3 (3.60-5.2); RDW 15.7 % (11.6-15.6); WHITE BLOOD COUNT 13.4 K/mm3 (4.0-10.0)
[2022-01-19 08:44] LABS: CALCIUM 8.1 mg/dL (8.5-10.1)
[2022-01-19 08:45] LABS: ALBUMIN 2.3 g/dl (3.4-5.0); BLOOD UREA NITROGEN 65.1 mg/dL (7-18); MAGNESIUM 2.2 mg/dL (1.8-2.4)
[2022-01-19 08:48] LABS: CREATININE 1.4 mg/dL (0.55-1.3); PHOSPHOROUS 3.4 mg/dL (2.5-4.9)
[2022-01-19 08:49] LABS: BILIRUBIN,TOTAL 0.3 mg/dL (0.2-1); TOT PROT 5.2 g/dl (6.4-8.2)
[2022-01-19] MEDS: APIXABAN 2.5 MG TABLET PO SCH ×2 (09:35→21:44)
[2022-01-19] MEDS: DULoxetine HCL 30 MG CAPSULE.DR PO SCH (09:36)
[2022-01-19] MEDS: CYANOCOBALAMIN 1,000 MCG TABLET (FP) PO SCH (09:36)
[2022-01-19] MEDS: CHOLECALCIFEROL (VIT D3) 1,000 UNIT (25 MCG) TABLET PO SCH (09:36)
[2022-01-19] MEDS: ASCORBIC ACID 500 MG TABLET (FP) PO SCH ×2 (09:36→21:44)
[2022-01-19] MEDS: PANTOPRAZOLE 40 MG TABLET PO SCH (09:36)
[2022-01-19] MEDS: DEXAMETHASONE SOD PHOSPHATE 10 MG/1 ML VIAL IVPUSH SCH (09:36)
[2022-01-19] MEDS: LOSARTAN POTASSIUM 50 MG TABLET PO SCH (09:36)
[2022-01-19] MEDS: BUDESONIDE/FORMETEROL FUMARATE 80/4.5 mcg INHALER IH SCH ×2 (09:36→21:45)
[2022-01-19] MEDS ORDERED: ACETAMINOPHEN 325 MG TABLET (FP) PO ONE (20:48)
[2022-01-19] MEDS: NIFEdipine E.R 60 MG TABLET PO SCH (21:44)
[2022-01-19] MEDS: ATORVASTATIN CA 20 MG TABLET (FP) PO SCH (21:44)
[2022-01-19] MEDS: MELATONIN 5 MG TABLETS PO SCH (21:44)
[2022-01-19] MEDS: SENNOSIDES 8.8 MG/5 ML BULK BOTTLE PO SCH (21:45)
[2022-01-20] MEDS: SODIUM CHLORIDE 0.45% 1,000 ML IV SCH (01:06)
[2022-01-20] MEDS: INSULIN SLIDING SCALE (NOVOLOG) 1 VIAL SQ SCH ×3 (07:05→16:56)
[2022-01-20] MEDS: INSULIN (LEVEMIR) 100 UNITS/ML UNITS SQ SCH (07:06)
[2022-01-20 09:13] LABS: BASO % 0.2 % (0-2.0); EOS % 0.2 % (0-4.5); HEMATOCRIT 34.9 % (32.4-45.2); HEMOGLOBIN 10.8 GM/dL (10.7-15.3); LYMPH % 8.3 % (8-40); MCH 26.6 pg (25.7-33.7); MEAN CELL VOLUME 85.8 fl (80-96); MEAN PLT VOLUME 13.2 fl (7.5-11.1); MONO % 10.3 % (3.8-10.2); PLATELET COUNT 134 10^3/uL (134-434); RBC 4.07 M/mm3 (3.60-5.2); RDW 16.1 % (11.6-15.6); WHITE BLOOD COUNT 14.9 K/mm3 (4.0-10.0)
[2022-01-20 10:52] LABS: CALCIUM 8.6 mg/dL (8.5-10.1)
[2022-01-20 10:53] LABS: ALBUMIN 2.5 g/dl (3.4-5.0); BLOOD UREA NITROGEN 70.6 mg/dL (7-18); MAGNESIUM 2.4 mg/dL (1.8-2.4)
[2022-01-20 10:56] LABS: CREATININE 1.5 mg/dL (0.55-1.3); PHOSPHOROUS 3.6 mg/dL (2.5-4.9)
[2022-01-20 10:58] LABS: BILIRUBIN,TOTAL 0.3 mg/dL (0.2-1); TOT PROT 5.4 g/dl (6.4-8.2)
[2022-01-20] MEDS: DULoxetine HCL 30 MG CAPSULE.DR PO SCH (11:12)
[2022-01-20] MEDS: ASCORBIC ACID 500 MG TABLET (FP) PO SCH ×2 (11:12→21:37)
[2022-01-20] MEDS: CYANOCOBALAMIN 1,000 MCG TABLET (FP) PO SCH (11:12)
[2022-01-20] MEDS: LOSARTAN POTASSIUM 50 MG TABLET PO SCH (11:12)
[2022-01-20] MEDS: PANTOPRAZOLE 40 MG TABLET PO SCH (11:12)
[2022-01-20] MEDS: CHOLECALCIFEROL (VIT D3) 1,000 UNIT (25 MCG) TABLET PO SCH (11:12)
[2022-01-20] MEDS: APIXABAN 2.5 MG TABLET PO SCH ×2 (11:13→21:37)
[2022-01-20] MEDS: BUDESONIDE/FORMETEROL FUMARATE 80/4.5 mcg INHALER IH SCH ×2 (11:13→21:37)
[2022-01-20] MEDS: MELATONIN 5 MG TABLETS PO SCH (21:37)
[2022-01-20] MEDS: SENNOSIDES 8.8 MG/5 ML BULK BOTTLE PO SCH (21:37)
[2022-01-20] MEDS: NIFEdipine E.R 60 MG TABLET PO SCH (21:37)
[2022-01-20] MEDS: ATORVASTATIN CA 20 MG TABLET (FP) PO SCH (21:37)
[2022-01-21] MEDS: INSULIN SLIDING SCALE (NOVOLOG) 1 VIAL SQ SCH (06:10)
[2022-01-21] MEDS: INSULIN (LEVEMIR) 100 UNITS/ML UNITS SQ SCH (06:10)
[2022-01-21 06:19] VITALS: RESP 18
[2022-01-21 08:59] VITALS: BP 140/67; PULSE 90; TEMP 98.7
[2022-01-21] MEDS: CYANOCOBALAMIN 1,000 MCG TABLET (FP) PO SCH (09:30)
[2022-01-21] MEDS: BUDESONIDE/FORMETEROL FUMARATE 80/4.5 mcg INHALER IH SCH (09:30)
[2022-01-21] MEDS: LOSARTAN POTASSIUM 50 MG TABLET PO SCH (09:30)
[2022-01-21] MEDS: CHOLECALCIFEROL (VIT D3) 1,000 UNIT (25 MCG) TABLET PO SCH (09:30)
[2022-01-21] MEDS: PANTOPRAZOLE 40 MG TABLET PO SCH (09:30)
[2022-01-21] MEDS: ASCORBIC ACID 500 MG TABLET (FP) PO SCH (09:30)
[2022-01-21] MEDS: APIXABAN 2.5 MG TABLET PO SCH (09:30)
[2022-01-21] MEDS: DULoxetine HCL 30 MG CAPSULE.DR PO SCH (09:30)
== END 2022-01-21 11:41 | DRG 177 ==
LOC: JER 09:30 → JERBED 12:16 → J4S 01-10 15:53
PROVIDERS: ADMIT Internal Medicine; ATTEND Internal Medicine
PROC: 3E0333Z Introduction of Anti-inflammatory into Peripheral Vein, Percutaneous Approach (ICD-10-PCS; principal; 2022-01-09)
DX: U07.1 COVID-19 (principal); G93.41 Metabolic encephalopathy; I50.33 Acute on chronic diastolic (congestive) heart failure; J12.82 Pneumonia due to coronavirus disease 2019; J96.01 Acute respiratory failure with hypoxia; J96.02 Acute respiratory failure with hypercapnia; N17.9 Acute kidney failure, unspecified; I24.8 Other forms of acute ischemic heart disease; I13.0 Hypertensive heart and chronic kidney disease with heart failure and stage 1 through stage 4 chronic kidney disease, or unspecified chronic kidney disease; I16.1 Hypertensive emergency; E87.0 Hyperosmolality and hypernatremia; E87.29 Other acidosis; E78.5 Hyperlipidemia, unspecified; F03.90 Unspecified dementia, unspecified severity, without behavioral disturbance, psychotic disturbance, mood disturbance, and anxiety; D64.9 Anemia, unspecified; E66.9 Obesity, unspecified; Z68.32 Body mass index [BMI] 32.0-32.9, adult; E11.22 Type 2 diabetes mellitus with diabetic chronic kidney disease; N18.9 Chronic kidney disease, unspecified; E11.65 Type 2 diabetes mellitus with hyperglycemia; I48.0 Paroxysmal atrial fibrillation; R33.9 Retention of urine, unspecified; Z66 Do not resuscitate
CPT/HCPCS: 0241U-QW; 36415; 36600; 71045-TC-FY; 74018-TC-FY; 76775-TC; 80048; 80053; 80061; 81003; 82550; 82728; 82803; 82962; 83605; 83615; 83735; 83880; 84100; 84443; 84484; 85025; 85379; 85610; 85730; 86140; 87040; 87899; 93005; 93010; 94660; 94761; 97116-GP; 97161-GP; 99285-25; C9803-CS; J1100; U0003; U0005